=== PATIENT | female | born 1945 | race Asian ===

== ENCOUNTER 2018-04-25 14:22 | Emergency (ER) | payer OTHER, MEDICAID ==
[~2018-04-25] VITALS: Ht 139.7 cm; Wt 73.5 kg
[2018-04-25 14:37] VITALS: Ht 139.7 cm; Wt 73.5 kg
[2018-04-25 18:39] VITALS: BP 140/76
== END 2018-04-25 18:39 | disposition home or self-care (01) ==
LOC: ED 14:22
DX: M43.6 Torticollis (principal); I50.9 Heart failure, unspecified; I11.0 Hypertensive heart disease with heart failure; E11.9 Type 2 diabetes mellitus without complications
CPT/HCPCS: Q0092

== ENCOUNTER 2019-03-07 15:01 | Inpatient (IN) | payer OTHER, MEDICAID ==
[~2019-03-07] VITALS: Ht 152.4 cm; Wt 74.4 kg
--- NOTE | 2019-03-07 15:23 | NUR ---
PT BIB [facility] FOR SOB X 1 WEEK PROGRESSIVELY GETTING WORSE. PT AAOX4 NO RESP DISTRESS DIMINISHED/CRACKLES LUNGS SOUNDS PT REPORTS CLEAR/WHITE PHLEGM PT RECEIVED ONE BREATHING TX MANAGEMENT RECRUITER TO ED. PTS FAMILY AT BEDSIDE AWAITING MD EVAL AND ORDERS. WILL MONITOR
--- NOTE | 2019-03-07 16:02 | NUR ---
LAB AT BEDSIDE. RESP AT BEDSIDE FOR ABG.
[2019-03-07] MEDS ORDERED: ALBUTEROL1.25 MG/3 NEB (16:03)
[2019-03-07] MEDS ORDERED: CARVEDILOL25 M1 PO (16:04)
[2019-03-07] MEDS ORDERED: FERROUS SULFAT325 M2 PO (16:04)
[2019-03-07] MEDS ORDERED: POTASSIUM CHLO10 MEQ PO (16:04)
[2019-03-07] MEDS ORDERED: LIPI10 PO (16:04)
[2019-03-07] MEDS ORDERED: DILTIAZEM HCL120 M2 PO (16:05)
[2019-03-07] MEDS ORDERED: JANUVIA100 M1 PO (16:05)
[2019-03-07] MEDS ORDERED: ELIQUIS5 MG PO (16:05)
[2019-03-07] MEDS ORDERED: GLIPIZIDE5 M2 PO (16:05)
[2019-03-07] MEDS ORDERED: FUROSEMIDE40 MG PO (16:06)
[2019-03-07] MEDS ORDERED: LOSARTAN POTASS25 M1 PO (16:06)
[2019-03-07] MEDS ORDERED: PANTOPRAZOLE SO40 M1 PO (16:06)
[2019-03-07 16:22] LABS: BASOPHIL % 0.4 % (0-2); PLATELET COUNT 155 x10^3mcL (130-400)
[2019-03-07 16:24] LABS: RED CELL DISTRIBUTION WIDTH 16.9 % (11.5-14.5)
--- NOTE | 2019-03-07 16:34 | NUR ---
PT PLACED ON BEDPAN AND UNABLE TO GIVE URINE SAMPLE AT THIS MD NILA MADE AWARE.
[2019-03-07 16:37] LABS: CALCIUM 7.6 mg/dL (8.5-10.1); CARBON DIOXIDE 28.2 mmol/L (21-32); CHLORIDE SERUM 103 mmol/L (98-107); CREATININE SERUM 2.4 mg/dL (0.6-1.0); GLUCOSE SERUM 154 mg/dL (74-106); SODIUM SERUM 140 mmol/L (136-145)
--- NOTE | 2019-03-07 16:38 | NUR ---
REPORT RECEIVED FROM COLE GRIFFITHS TO ASSUME CARE OF PT.
[2019-03-07 16:48] LABS: ALKALINE PHOSPHATASE 121 U/L (46-116); ALT/SGPT 12 U/L (14-59); AST/SGOT 15 U/L (15-37); BILIRUBIN TOTAL 0.46 mg/dL (0.20-1.00); C REACTIVE PROTEIN 1.7 mg/dL (<=0.9); TOTAL PROTEIN, SERUM 7.7 g/dL (6.4-8.2)
[2019-03-07 16:51] LABS: CK-MB 0.8 ng/mL (0-3.6); FREE T4 1.1 ng/dL (0.76-1.46); FREE THYROXINE INDEX 2.9 ug/dL (1.4-4.5); T4(THYROXINE) 8.2 ug/dL (4.7-13.3)
[2019-03-07 16:54] LABS: ALBUMIN 2.6 g/dL (3.4-5.0)
[2019-03-07 17:00] LABS: ERYTHROCYTE SED RATE 97 mm/hr (0-30)
--- NOTE | 2019-03-07 17:26 | NUR ---
MEDICATED PER EMAR, PT UNDERSTOOD MEDICATION ADMIN.
[2019-03-07 17:37] LABS: UA SPECIFIC GRAVITY 1.025 (1.005-1.035); microscopic required? YES; urine erythrocyte NEGATIVE (NEGATIVE)
[2019-03-07 18:09] LABS: T3 TOTAL 0.75 ng/mL
--- NOTE | 2019-03-07 18:45 | NUR ---
REPORT GIVEN TO ELIA GRIFFITHS TO ASSUME CARE OF PT.
--- NOTE | 2019-03-07 19:15 | NUR ---
RECEIVED PT FROM ED VIA ROBERT, CAME IN DUE TO SOB AND COUGH. AAXO4. DENIES HEADACHE. C/O DIZZINESS. ABLE TO FOLLOW COMMANDS. NO SOB NOTED, CRACKLES NOTED ON AUSCULTATION, O2 SAT=94% ON 2LPM/NC. STATED THAT SHE HAS PRODUCTIVE COUGH, ABLE TO EXPECTORATE LIGHT YELLOW SPUTUM. DENIES CHEST PAIN/PRESSURE, AFIB ON THE MONITOR. DENIES ABDOMINAL PAIN. C/O NAUSEA AND VOMITING, MEDICATED W/ ZOFRAN 4 MG IVP ORDERED. VOIDS. GENERALIZED WEAKNESS. IV SITE PATENT AND INTACT. SIDE RAILS UPX2. CALL LIGHT ON REACH. HOB ELEVATED AT 30 DEG. ENDORSED TO PRIMARY NURSE ZINA FOR CONTINUITY OF CARE
[2019-03-07 19:30] VITALS: BP 121/53
[2019-03-07 19:38] VITALS: Ht 152.4 cm; Wt 74.4 kg
--- NOTE | 2019-03-07 20:30 | NUR ---
PT RECEIVED FROM RESOURCE NURSE, NARENDRA GRIFFITHS. PT IS A/O X4. TELE #7 SHOWING AFIB. PULSES ARE PALPABLE. NO EDEMA PRESENT. BREATHING IS EVEN AND SLIGHTLY LABORED ON 2L NC. CRACKLES CELY. ABD IS SOFT AND NONDISTENDED. BS ACTIVE X4Q. PT HAVE EPISODES OF URINARY INCONTINENCE. GENERALIZED WEAKNESS. CANE/WALKER BASELINE. SKIN INTACT. DENIES PAIN AT THIS TIME. SALINE LOCK TO RAC. SON AT BEDSIDE. BED IN LOWEST POSITION. CALL LIGHT WITHIN REACH. WILL CONTINUE TO MONITOR.
--- NOTE | 2019-03-07 21:25 | NUR ---
BEGAN TO C/O 10/10 PAIN ON BACK. OFFERED PT NORCO, BUT PT STATED IT WAS TO STRONG. MEDICATED WITH PRN TYLENOL PER MAR ORDER. WILL REASSESS EFFECTIVENESS. CALL LIGHT WITHIN REACH.
[2019-03-07 21:31] LABS: CHOLESTEROL/HDL RATIO 4.2
--- NOTE | 2019-03-07 22:00 | NUR ---
PTS SON LEFT, BED ALARM ON. WILL CONTINUE TO MONITOR.
[2019-03-07 22:23] LABS: AMPHETAMINE QUAL UR NONE DETECTED (See below)
--- NOTE | 2019-03-08 00:47 | NUR ---
PT IS RESTING IN BED COMFORTABLY WITH EYES CLOSED, BUT EASILY AROUSABLE WHEN SPOKEN TO. BREATHING IS EVEN AND UNLABORED ON 2LNC. NO RESP DISTRESS NOTED. BED IN LOWEST POSITION. CALL LIGHT WITHIN REACH. WILL CONTINUE TO MONITOR.
--- NOTE | 2019-03-08 02:33 | NUR ---
PT IS AWAKE AND REPOSITIONING SELF. BREATHING IS EVEN AND UNLABORED ON 2L NC. DENIES SOB. DENIES PAIN AT THIS TIME. ENCOURAGED PT TO USE CALL LIGHT IF IN NEED OF ANY ASSISTANCE OR HAVING ANY DISCOMFORT. BED IN LOWEST POSITION. WILL CONTINNUE TO MONITOR.
--- NOTE | 2019-03-08 03:58 | NUR ---
PT INCONTINENT OF URINE. PT CLEANED AND REPOSITION, HYDRAGUARD PLACED. RAC IV INTACT. PT DENIES HAVING ANY PAIN AT THIS TIME. NO ACUTE DISTRESS NOTED. BED ALARM ON. CALL LIGHT WITHIN REACH. WILL CONT TO MONITOR.
--- NOTE | 2019-03-08 05:29 | NUR ---
PT SLEPT IN INTERVALS THROUGHOUT THE NIGHT. PT COMPLIED WITH NURSING CARE THROUGHOUT SHIFT WITH NO ACUTE EVENTS OVERNIGHT. COMFORT AND SAFETY MEASURES MAINTAINED. ALL NEEDS ASSESSED AND ATTENDED TO. WILL CONTINUE TO MONITOR AND ENDORSE CARE TO DAY SHIFT NURSE.
--- NOTE | 2019-03-08 05:44 | NUR ---
SPOKE WITH DR. MALDONADO ABOUT PTS HX OF DM AND HGBA1C OF 8.5. AWAITING ORDERS AT THIS TIME.
[2019-03-08 05:55] VITALS: BP 104/61
--- NOTE | 2019-03-08 07:15 | NUR ---
RECEIVED PATIENT AWAKE/ALERT IN BED NO COMPLAIN, NO C/O PAIN. NO ACUTE DISTRESS NOTED. SLOW TO TALK BUT ABLE TO VERBALIZE NEEDS. ASKING RN TO CALL HER SON. DIAL THE SON NUMBER FOR PATIENT. TELE #7 AFIB HR 109 NOTED. IV TO RAC INTACT AND SL NOTED. CALL LIGHT WITHIN REACH.
--- NOTE | 2019-03-08 07:36 | NUR ---
ENDORSED CARE TO DAY SHIFT NURSE, HARRIET GRIFFITHS.
[2019-03-08 08:54] LABS: PLATELET COUNT 142 x10^3mcL (130-400)
[2019-03-08 09:17] LABS: CARBON DIOXIDE 25.3 mmol/L (21-32); CHLORIDE SERUM 101 mmol/L (98-107); CREATININE SERUM 2.3 mg/dL (0.6-1.0); GLUCOSE SERUM 323 mg/dL (74-106); MAGNESIUM 1.9 mg/dL (1.8-2.4); PHOSPHOROUS 4.1 mg/dL (2.5-4.9); POTASSIUM SERUM 3.5 mmol/L (3.5-5.1); SODIUM SERUM 138 mmol/L (136-145)
[2019-03-08 09:20] LABS: RED CELL DISTRIBUTION WIDTH 16.8 % (11.5-14.5)
[2019-03-08 09:28] VITALS: BP 135/55
[2019-03-08 09:32] VITALS: BP 142/65
--- NOTE | 2019-03-08 09:52 | NUR ---
PATIENT UP TO BATHROOM WITH SON ASSIST, NEEDS MET. ALL PO MEDS WAS GIVEN BY STUDENT AND PROFESSOR AGAPITO. CALL LIGHT WITHIN REACH.
--- NOTE | 2019-03-08 11:42 | NUR ---
PATIENT SAT UP IN BED C/O BACK PAIN 6/10 TYLENOL 2 TABS PO ADMINISTERED, BS 264 GAVE 9 UNITS OF REGULAR INSULIN SQ TO RT ABDOMEN, NEEDS MET. SON SHAY REMAIN AT BEDSIDE.
[2019-03-08 11:51] LABS: BAND NEUTROPHIL 50 % (0-10); BASOPHIL 0 % (0-2); MONOCYTE 2 % (0-7); SEGMENTED NEUTROPHILS 43 % (37-75); ovalocyte/elliptocyte 1+; rbc morphology (normal/abnorm) ABNORMAL (NORMAL)
[2019-03-08 11:53] LABS: PLATELET MORPHOLOGY PLATELETS DECREASED
--- NOTE | 2019-03-08 11:54 | NUR ---
SPUTUM OBTAIN AND SEND TO LAB ORDERED.
[2019-03-08 12:17] VITALS: BP 113/65
--- NOTE | 2019-03-08 13:07 | NUR ---
PATIENT SAT UP IN BED ATE ABOUT 40% OF THE MEAL, FAMILY MEMBERS REMAIN AT BEDSIDE. NO C/O PAIN. CALL LIGHT WITHIN REACH.
--- NOTE | 2019-03-08 14:32 | NUR ---
ECHOCARDIOGRAM PENDING -HAD ECHO/ANGIOGRAM STEPHANIE KIRKLAND-08/2018
[2019-03-08 16:44] VITALS: BP 99/51
--- NOTE | 2019-03-08 18:40 | NUR ---
PATIENT RESTING IN BED WATCHING TV, NO COMPLAIN. NEEDS MET. CALL LIGHT WITHIN REACH.
[2019-03-08 20:14] VITALS: BP 110/65
--- NOTE | 2019-03-08 20:18 | NUR ---
PATIENT RECEIVED IN BED AWAKE,ALERT AND ORIENTED X4, SPEECH CLEAR,CLAIMED SHE STILL EXPERIENCING DIZZINESS WHENEVER SHE STAND FROM LYING POSITION, ADVICED TO CALL NURSE IF NEEDS ARISES. BREATHING EVEN AND UNLABORED BC FINE CRACKLES BASES AND EXP WHEEZING UPPER LOBES, WITH OCC PRODUCTIVE COUGH YELLOW PHLEGM CLEARED BY COUGHING, FOUND ON ROOM AIR SAT 95%, PATIENT STATED TOLERATING IT, O2 MAKES HER NOSE AND MOUTH DRY, ADVICED TO GRAB O2 IF NEEDED. DENIED CHEST PAINS, HR=85BPM, ATRIAL FIB CONTROLLED RATE, TELE#7. HEPLOCK TO RT AC PATENT AND INTACT TAPE SECURED, CAP LOCK APPLIED. PATIENT AND SON INFORMED ABOUT POC THIS SHIFT. SAFETY/FALL PRECAUTIONS MAINTAINED. WILL CONTINUE TO MONITOR.
--- NOTE | 2019-03-08 21:20 | NUR ---
SCHEDULED MED ADMINISTERED THIS TIME, PATIENT INFORMED ABOUT EACH MEDS ACTIONS AND PURPOSE PRIOR. PATIENT ABLE TO TAKE PILLS WITHOUT DIFF.
--- NOTE | 2019-03-08 22:33 | NUR ---
AT 2211 PATIENT CHECKED , SLEEPING EASILY AWAKEN VERBALLY, STATED VICKY DIEHL PAIN IS BETTER AT 2/10, COMFORTABLE. WILL CONTINUE TO MONITOR.
[2019-03-09 05:13] VITALS: BP 109/53
--- NOTE | 2019-03-09 06:21 | NUR ---
PATIENT SLEPT GOOD AND RESTED WELL DURING THE SHIFT,TOLERATED BEING ON ROOM AIR SATURATING BETWEEN 95-98%. WAS ASSISTED OOB TO THE BATHROONM FOR HER NECESSITIES, GAIT STEADY/SLOW, VOIDED WITHOUT DIFF. HEPLOCK INTACT CAP LOCK. SAFETY PRECAUTIONS MAINTAINED. ATRIAL FIB CONTROLLED RATE ON THE MONITOR. WILL ENDORSE CONTINUITY OF CARE TO INCOMING NURSE.
--- NOTE | 2019-03-09 07:19 | NUR ---
BEDSIDE HANDS OFF AND INTRODUCTION PERFORMED WITH INCOMING NURSE ERLIN/DAVID.
--- NOTE | 2019-03-09 07:25 | NUR ---
RECEIVED REPORT FROM BUTT MAKER NURSE PT LYING IN BED ASLEEP AND AROUSABLE. EXPIRATORY WHEEZES HEARD BILAT,PT ON RA AT 92-99%, PRODUCTIVE COUGH, SPUTUM CLEARED WITH COUGH. PULSES STRONG BILAT RADIAL AND PEDAL, DENIES CHEST PAIN AT THIS TIME. IV ON RAC SALINE LOCK PATENT , INTACT NO REDNESS OR SWELLING NOTED. INSTRUCTED PT TO USE CALL LIGHT FOR ANY NEEDS. BED IN LOW POSITION CALL LIGHT WITHIN REACH. WILL CONTINUE TO MONITOR.
[2019-03-09 08:01] LABS: CALCIUM 8.2 mg/dL (8.5-10.1); CARBON DIOXIDE 27.8 mmol/L (21-32); CHLORIDE SERUM 103 mmol/L (98-107); CREATININE SERUM 2.2 mg/dL (0.6-1.0); GLUCOSE SERUM 208 mg/dL (74-106); PHOSPHOROUS 3.5 mg/dL (2.5-4.9); SODIUM SERUM 138 mmol/L (136-145)
[2019-03-09 08:16] LABS: PLATELET COUNT 132 x10^3mcL (130-400)
[2019-03-09 08:24] LABS: RED CELL DISTRIBUTION WIDTH 16.7 % (11.5-14.5)
[2019-03-09 08:47] VITALS: BP 101/56
--- NOTE | 2019-03-09 10:00 | NUR ---
ADMINISTERED FLU SHOT AND ALL PRESCIRBED MEDS PER JUL PT TOLERATED WELL. NO ADVERSE AFFECTS NOTED AT THIS TIME. WILL CONTINUE TO MONITOR.
[2019-03-09 10:42] LABS: BASOPHIL 0 % (0-2); MONOCYTE 3 % (0-7)
[2019-03-09 10:43] LABS: BAND NEUTROPHIL 42 % (0-10)
[2019-03-09 10:44] LABS: SEGMENTED NEUTROPHILS 49 % (37-75)
[2019-03-09 10:46] LABS: PLATELET MORPHOLOGY PLATELETS NORMAL; rbc morphology (normal/abnorm) ABNORMAL (NORMAL)
[2019-03-09 10:47] LABS: ovalocyte/elliptocyte 1+
--- NOTE | 2019-03-09 11:30 | NUR ---
BLOOD GLUCOSE 319 ADMINISTERED 12 U REGULAR INSULIN PER SLIDING SCALE. PT TOLERATED WELL. WILL CONTINUE TO MONITOR.
[2019-03-09 12:18] VITALS: BP 111/44
--- NOTE | 2019-03-09 12:45 | NUR ---
PT SITTING UP IN BED EATING LUNCH. TOLERATED DIET WELL. IN NO APPARENT DISTRESS. WILL CONTINUE TO MONITOR.
--- NOTE | 2019-03-09 14:23 | NUR ---
PT LYING IN BED ZOSYN INFUSING. PT IN NO APPARENT DISTRESS. WILL CONTINUE TO MONITOR.
--- NOTE | 2019-03-09 16:45 | NUR ---
BLODD GLUCOSE 362 15 U REGULAR INSULIN GIVEN PER SLIDING SCALE. PT TOLERATED WELL. NO ADVERSE AFFECTS NOTED. WILL CONTINUE TO MONITOR.
[2019-03-09 17:44] VITALS: BP 112/63
--- NOTE | 2019-03-09 19:04 | NUR ---
PT LYING IN BED IN NO APPARENT DISTRESS. IV INFUSING ON RAC PATENT NO REDNESS OR EDEMA NOTED. ALL QUESTIONS AND CONCERNS ADDRESSED AT THIS TIME. ENDORSING CARE TO NIGHT NURSE.
--- NOTE | 2019-03-09 19:20 | NUR ---
RECIEVED PT RESTING IN BED WITH NO ACUTE DISTRESS NOTED AT THIS TIME, ASSESMENT PERFORMED AT THIS TIME, PT IS A/OX4 WITH NO COMPLAINTS OF PLATT OR DIZZINESS. PT DENIES PAIN OR SOB AT THIS TIME, PT IS ON O2 AT 2L VIA NC, IV TO THE RAC SALINE LOCKED, TELE 7 AFIB, SAFETY PRECAUTIONS IN PLACE, WILL CONTINUE TO MONITOR
[2019-03-09 21:08] VITALS: BP 96/69
--- NOTE | 2019-03-09 21:41 | NUR ---
PT IV WENT BAD, STARTED NEW IV IN THE RIGHT HAND 22 G
--- NOTE | 2019-03-10 00:05 | NUR ---
PT AMBULATED TO RESTROOM WITH STEADY GAIT AND HAD ONE VOID, RETURNED PT TO BED, SAFETY PRECAUTIONS IN PLACE, WILL COTОЛЕГUE TO MONITOR
--- NOTE | 2019-03-10 05:05 | NUR ---
PT RESTED COMFORTABLY THROUGH NIGHT, PT HAD MILD SOB EARLIER IN SHIFT BUT IT RESLOVED WITH O2 AT 2L VIA NC, PT AMBULATED TO RESTROOM WITH STEADY GAIT, PT DENIED PAIN THROUGH NIGHT, ALL PT NEEDS ATTENDED TO WILL CONTINUE TO MONITOR AND ENDORSE CARE
[2019-03-10 06:44] LABS: CARBON DIOXIDE 28.1 mmol/L (21-32); CHLORIDE SERUM 101 mmol/L (98-107); CREATININE SERUM 1.9 mg/dL (0.6-1.0); GLUCOSE SERUM 255 mg/dL (74-106); MAGNESIUM 2.1 mg/dL (1.8-2.4); PHOSPHOROUS 3.5 mg/dL (2.5-4.9); SODIUM SERUM 137 mmol/L (136-145)
[2019-03-10 06:50] VITALS: BP 129/77
--- NOTE | 2019-03-10 07:05 | NUR ---
RECEIVED REPORT FROM PANCHO GRIFFITHSSILK WORKERBOX TENDER. PT ASLEEP BUT ARROUSABLE A&O X4, IN NO APPARENT DISTRESS. ON NC 2L EXPIRATORY LUNG SOUNDS NOTED. BREATHING UNLABORED. ASSESSED AND DOCUMENTED. ALL QUESTIONS AND CONCERNS ADDRESSED AT THIS TIME. BED IN LOW POSITION CALL LIGHT WITHIN REACH. WILL CONTINUE TO MONITOR.
[2019-03-10 07:51] LABS: PLATELET COUNT 146 x10^3mcL (130-400)
[2019-03-10 07:52] LABS: RED CELL DISTRIBUTION WIDTH 16.7 % (11.5-14.5)
[2019-03-10 08:05] VITALS: BP 127/75
--- NOTE | 2019-03-10 08:36 | NUR ---
PT LYING IN BED VERONICA OTOOLE AND RT AT BEDSIDE. ADMINISTERED SCHEDULED MED PER JUL. NO ADVERSE REACTIONS NOTED. PT IN NO APPARENT DISTRESS. ALL QUESTIONS AND CONCERNS NOTED. BED IN LOW POSITION. CALL LIGHT WITHIN REACH. PT IV IS SALINE LOCKED PATENT AND INTACT NO SWELLING OR REDNESS NOTED PT DENIES ANY PAIN. WILL CONTINUE TO MONITOR.
[2019-03-10 09:32] LABS: BASOPHIL 0 % (0-2); MONOCYTE 3 % (0-7); SEGMENTED NEUTROPHILS 44 % (37-75)
[2019-03-10 09:34] LABS: ovalocyte/elliptocyte 1+; rbc morphology (normal/abnorm) ABNORMAL (NORMAL)
[2019-03-10 09:35] LABS: PLATELET MORPHOLOGY PLATELETS NORMAL
--- NOTE | 2019-03-10 10:47 | NUR ---
NOTIFIED PT AND OF 1.5L/DAY FLUID RESTRICTION PER DR ORDERS. PT AND VERBALIZED UNDERSTANDING. TOOK AWAY ALL WATER AND ASKED TO TAKE WATER BOTTLES HOME. AGREED.
--- NOTE | 2019-03-10 11:42 | NUR ---
ADMINISTERED LANTUS PER MAR BLOOD SUGAR WAS 342 ADMINISTERED REGULAR INSULIN PER SLIDING SCALE. PT TOLERATED WELL. ALL NEEDS MET AT THIS TIME. CALL LIGHT WITHIN REACH. WILL CONTINUE TO MONITOR.
[2019-03-10 12:33] VITALS: BP 122/63
--- NOTE | 2019-03-10 12:51 | NUR ---
PT SERVED LUNCH TOLERATED WELL. ALL QUESTIONS AND CONCERNS ADDRESSED AT THIS TIME. WILL CONTINUE TO MONITOR.
--- NOTE | 2019-03-10 14:20 | NUR ---
PT LYING IN BED ASLEEP IN NO APPARENT DISTRESS. INFUSED ZOSYN PER JUL. NO ADVERSE AFFECTS NOTED. WILL CONTINUE TO MONITOR.
[2019-03-10 14:38] VITALS: BP 122/63
--- NOTE | 2019-03-10 16:25 | NUR ---
PT LYING IN BED. APPEARS TO BE IN NO APPARENT DISTRESS. BLOOD SUGAR [id number] ADMINISTERED INSULIN PER SLIDING SCALE. PT TOLERATED WELL. WILL CONTINUE TO MONITOR.
[2019-03-10 16:33] VITALS: BP 135/73
--- NOTE | 2019-03-10 18:49 | NUR ---
PY LYING IN BED SLEEPING IN NO APARENT DISTRESS. IV SALINE LOCK ON RIGHT HAND PATENT AND INTACT NO EDEMA OR REDNESS NOTED. BREATHING UNLABORED CHEST RISE EQUAL ON 2 L NC. NO SOB NOTED. BED IN LOW POSITION CALL LIGHT WITHIN REACH. WILL ENDORSE CARE TO MERCHANT MARINER NURSE.
--- NOTE | 2019-03-10 19:30 | NUR ---
RECIEVED PT RESTING IN BED, SUPPORTIVE FAMILY AT BEDSIDE. PT AOX4, DENIES PLATT/DIZZINESS. [place] BILAT. ABLE TO MAKE NEEDS KNOWN. TELE # 7, A FIB, HR 78-93, DENIES CP. PT ON ELIQUIS. PULSES PALPABLE BILAT, DENIES NUMBNESS/TINLGING IN FEET. RESP EVEN AND UNLABORED, PT ON AND OFF WITH OXYGEN, 2LNC. DENIES SOB. MINIMAL EXP WHEEZE NOTED. ON SOLUMEDROL. ABD SOFT, ROUND, BM IN DAYSHIFT. DENIES ABD PAIN. PT REPORTS HX OF STRESS INCONTINENCE. ABLE TO AMBULATE TO RESTROOM BRP. GENERALIZED WEAKNESS, WALKER AT BEDSIDE. SKIN INTACT. DENIES PAIN. RH SALINE LOCKED, NO REDNESS, SWELLING OR PAIN NOTED. PT RECEIVING LEVAQUIN AND ZOSYN. ALL COMFORT AND SAFETY MEASURES PROVIDED FOR, CALL LIGHT WITHIN REACH, BED IN LOWEST POSITION, WILL CONTINUE TO MONITOR.
[2019-03-10 21:04] VITALS: BP 117/61
--- NOTE | 2019-03-11 05:00 | NUR ---
PT RESTED IN INTERVALS DURING SHIFT, NO ACUTE CHANGES OCCURRING OVERNIGHT. PT REMAINS ON 2LNC, DENIES SOB, RESP EVEN AND UNLABORED. PT AMBULATED TO RESTROOM X2, WITH MINIMAL ASSIST. PT URINATED X2, BM X1. PT INGESTED 500ML OF WATER. PT EDUCATED ON IMPORTANCE OF LIMITING FLUID INTAKE, VERBALIZES UNDERSTANDING. BLOOD SUGARS REMAIN ELEVATED, 342 (12U REG), 229 (6 U REG). PT SCHEDULED TO BEGIN LANTUS THIS EVENING. IV SITE REMAINS PATENT, TP RT HAND, SALINE LOCKED. TOELRATING ZOSYN WELL. ALL COMFORT AND SAFETY MEASURES PROVIDED FOR, CALL LIGHT WITHIN REACH, BED IN LOWEST POSITION, WILL CONTINUE TO MONITOR.
--- NOTE | 2019-03-11 05:05 | NUR ---
PT RESTED IN INTERVALS DURING SHIFT, MOMENTS OF AGITATION AND REQUESTING CALMING MEDICATION. PT MEDICATED WITH ATIVAN X3 AND MORPHINE X1. PT ALSO MEDICATED WITH SCHEDULED LIBRIUM WITH GOOD RESULTS. PT REPORTS WAKING UP FREQUENTLY WITH BAD DREAMS. PT CALM AND COOPERATIVE WITH CARE AT THIS TIME. IV SITE REMAINS PATENT, NO REDNESS, SWELLING OR PAIN NOTED. ALL COMFORT AND SAFETY MEASURES PROVIDED FOR, CALL LIGHT WITHIN REACH, BED IN LOWEST POSITION, WILL CONTINUE TO MONITOR.
[2019-03-11 05:35] VITALS: BP 106/70
[2019-03-11 06:55] LABS: CALCIUM 7.9 mg/dL (8.5-10.1); CARBON DIOXIDE 27.1 mmol/L (21-32); CHLORIDE SERUM 103 mmol/L (98-107); CREATININE SERUM 1.8 mg/dL (0.6-1.0); POTASSIUM SERUM 3.9 mmol/L (3.5-5.1); SODIUM SERUM 140 mmol/L (136-145)
[2019-03-11 07:02] LABS: PLATELET COUNT 160 x10^3mcL (130-400)
[2019-03-11 07:13] LABS: GLUCOSE SERUM 247 mg/dL (74-106)
--- NOTE | 2019-03-11 07:20 | NUR ---
RECEIVED REPORT FROM DOOR MAKER NURSE PT ASLEEP BUT AROUSABLE. A&O X4 IN NO APPARENT DISTRESS AT THIS TIME. PT DENIES ANY PAIN AT THIS TIME. CHEST RISE EQUAL AND UNLABORED. IV PATENT AND INTACT NO EDEMA OR REDNESS NOTED. ALL NEEDS ADDRESSED AT TRHIS TIME. CALL LIGHT WITHIN REACH. WILL CONTINUE TO MONITOR.
--- NOTE | 2019-03-11 09:05 | NUR ---
PT LYING IN BED FINISHED BREAKFAST. ADMINISTERED SCHEDULED MEDS PER JUL. PT TOLERATED NO ADVERSE EFFECTS NOTED. ALL NEEDS ADDRESSED. CALL LIGHT WITHIN REACH WILL CONTINUE TO MONITOR.
[2019-03-11 09:14] VITALS: BP 137/71
--- NOTE | 2019-03-11 11:36 | NUR ---
PT SLEEPING IN BED. BLOOD GLUCOSE 361 ADMINISTERED 15U REGULAR INSULIN PT TOLERATED WELL. NO ADVERSE EFFECTS NOTED . WILL CONTINUE TO MONITOR.
[2019-03-11 12:04] VITALS: BP 140/60
[2019-03-11 12:08] LABS: BAND NEUTROPHIL 52 % (0-10); BASOPHIL 0 % (0-2); MONOCYTE 4 % (0-7); PLATELET MORPHOLOGY PLATELETS NORMAL; SEGMENTED NEUTROPHILS 39 % (37-75); ovalocyte/elliptocyte 1+; rbc morphology (normal/abnorm) ABNORMAL (NORMAL)
[2019-03-11 12:21] LABS: BAND NEUTROPHIL 50 % (0-10)
--- NOTE | 2019-03-11 13:00 | NUR ---
PT SITTING UP IN BED EATING LUNCH. TOLERATING DIET WELL. ALL NEEDS ATTENDED TO WILL CONTINUE TO MONITOR.
--- NOTE | 2019-03-11 14:36 | NUR ---
PT C/O CHEST PAIN 03/08 RADIATING TO THE BACK. SAT PT UP HIGH FOWLERS APPLIED 2LNC O2 VITALS: BP 149/82 MAP 95 SAT 02 97% HR [address] GALARZA NOTIF[address] . OFFERED NORCT PT REFUSED.
--- NOTE | 2019-03-11 14:41 | NUR ---
SPOKE WITH DR STRONG RE: PATIENT C/O CHEST PAIN 10/10, VS STABLE. DR STRONG WILL ORDER STAT EKG AND MEDICATION FOR CHEST PAIN. ATTENDING NURSE MAIDA AT PATIENT'S BEDSIDE.
--- NOTE | 2019-03-11 14:48 | NUR ---
PT RATING PAIN 0/10. PT STATES "OXYGEN HELPED"
--- NOTE | 2019-03-11 14:50 | NUR ---
PT SITTING UP IN BED ON 2L NC, DENIES CHEST PAIN OR PRESSURE AT THIS TIME. FAMILY AT BEDSIDE. CALL LIGHT WITHIN REACH. ALL QUESTIONS AND CONCERNS ADDRESSED AT THIS TIME.
[2019-03-11 14:51] VITALS: BP 149/82
--- NOTE | 2019-03-11 15:06 | NUR ---
SHOWED EKG TO DR. STRONG EKG SHOWED PT IN A FIB. PER DR STRONG NO NEW ORDERS TO BE DONE AT THIS TIME. WILL CONTINUE TO MONITOR.
[2019-03-11 17:03] VITALS: BP 140/66
--- NOTE | 2019-03-11 17:03 | NUR ---
ADMINISTERED MEDICATION PER MAR PT TOLERATED WELL IN NO APPARENT DISTRESS. NO ADVERSE AFFECTS NOTED WILL CONTINUE TO MONITOR.
[2019-03-11] MEDS ORDERED: METFORMIN HYDR500 M1 PO (17:07)
--- NOTE | 2019-03-11 17:17 | NUR ---
SPOKE TO DR STRONG AT THIS TIME REGARDING PATIENT BLOOD SUGAR 425 AT THIS TIME. PATIENT MEDICATED WITH 18 UNITS OF INSULIN. REPORTED TO DR STRONG PATIENT HAS TWO HOME MEDICATIONS FOR BLOOD SUGAR, GLIPIZIDE 5MG BID AND JANUVIA 50MG PO DAILY, THAT HAVE NOT BEEN CONTINUED DURING HOSPITAL STAY WELL PATIENT WAS PUT ON LANTUS DURING HOSPITAL STAY 5 UNITS GIVEN THIS AM AND 10 UNITS FOR PM SHIFT. PER DR STRONG, HE WILL RELAY MESSAGE TO DR PRICE. AWAITING ORDERS AT THIS TIME. WILL PROCEED ORDERED. WILL CONTINUE TO MONITOR
--- NOTE | 2019-03-11 18:29 | NUR ---
PT LYING IN BED WATCHING TV IN NO APPARENT DISTRESS. ALL NEEDS ATTENDED TO IV INTACT NO REDNESS OR EDEMA . PT DENIES SOB OR CHEST PAIN. PT ON 2LNC TOLERATING WELL. ALL NEEDS ATTENDED TO BED IN LOW POSITION. CALL LIGHT WITHIN REACH WILL ENDORSE CARE TO DIRECTOR OF STUDENT FINANCIAL AID NURSE.
--- NOTE | 2019-03-11 19:25 | NUR ---
RECEIVED PT RESTING IN BED, PT APPEARS DROWSY, YET EASY TO AROUSE. PT CIW, UNABLE TO KEEP CONTENTS IN STOMACH DOWN. REFUSING MEDICATION FOR N/V. TELE # 4, NSR 72, DENIES CP. PULSES PALPABLE BILAT, DENIES NUMBNESS/TINGLING IN FEET. SCDS ON. RESP EVEN AND UNLABORED ON RA, DENIES SOB. ABD SOFT, HYPERACTIVE. PT ON FULL LIQ DIET, INTOELRATE AT THIS TIME. PT WITH GONZALEZ CATH DRAINING YELLOW URINE TO GRAVITY, DENIES DYSRUIA. GENERALIZED WEAKNESS, ON BED REST FOR SAFETY D/T PT VERY WEAK. BSC AVAILABLE. SKIN INTACT. IV SITE TO THE RFA PATENT, D5W @ 150ML/HR. NO REDNESS, SWELLING OR PAIN NOTED. PT RECEIVING ZOSYN AND VANCO. ALL COMFORT AND SAFETY MEASURES PROVIDED FOR, CALL LIGHT WITHIN REACH, BED IN LOWEST POSITION, WILL CONTINUE TO MONITOR.
--- NOTE | 2019-03-11 19:30 | NUR ---
RECIEVED PT RESTING IN BED, PT AOX4, DENIES PLATT/DIZZINESS. [place] BILAT. ABLE TO MAKE NEEDS KNOWN. TELE # 7, A FIB, HR CONTROLLED IN THE 80'S, DENIES CP. PT ON ELIQUIS. PULSES PALPABLE BILAT, DENIES NUMBNESS/TINLGING IN FEET. RESP EVEN AND UNLABORED, PT ON OXYGEN, 2LNC. DENIES SOB. CTA UPPER LOBES. WILL ATTEMPT TO WEAN OFF O2. PT NOW ON PREDNISONE. ABD SOFT, ROUND, BM IN DAYSHIFT. DENIES ABD PAIN. PT REPORTS HX OF STRESS INCONTINENCE. ABLE TO AMBULATE TO RESTROOM BRP. GENERALIZED WEAKNESS, WALKER AT BEDSIDE. SKIN INTACT. DENIES PAIN. RH SALINE LOCKED, NO REDNESS, SWELLING OR PAIN NOTED. PT RECEIVING LEVAQUIN AND ZOSYN. ALL COMFORT AND SAFETY MEASURES PROVIDED FOR, CALL LIGHT WITHIN REACH, BED IN LOWEST POSITION, WILL CONTINUE TO MONITOR.
[2019-03-11 20:36] VITALS: BP 129/63
--- NOTE | 2019-03-11 22:15 | NUR ---
PT USED CALL LIGHT TO BE DETACHED FROM IV SO SHE COULD AMBUALTE TO RESTROOM. PT GAIT SLOW/STEADY. ABLE TO MANAGE FWW WITHOUT ASSISTANCE. PT EDUCATED ON THE SAFETY CALL LIGHT IN RESTROOM IN CASE OF EMERGENCY (SOB/CP) PT VERBALIZES UNDERSTANDING. WILL CONTINUE TO MONITOR.
--- NOTE | 2019-03-12 05:13 | NUR ---
PT RESTED IN INTERVALS DURING SHIFT, NO ACUTE CHANGES OCCURRING OVERNIGHT, PT TITRATED DOWN TO 1LNC, O2 SAT= 95% ON 1LNC, NO S/S OF SOB, NO CP NOTED. PT DENIES PLATT/DIZZINESS NOTED. WILL ATTEMPT TO TITRATE TO ROOM AIR IF PT TOLERATES. PT UTILIZES FWW WILL WITHOUT DIFFICULTY. PT ABLE TO PARK FWW AGAINST THE WALL AND WALK HERSELF TO THE BED. IV SITE REMAINS PATENT TO RT HAND, NO REDNESS, SWELLING OR PAIN NOTED. PT TOLERATING ZOSYN WELL. ALL COMFORT AND SAFETY MEASURES PROVIDED FOR, CALL LIGHT WITHIN REACH, BED IN LOWEST POSITION, WILL CONTINUE TO MONITOR.
[2019-03-12 05:27] VITALS: BP 136/83
[2019-03-12 07:00] LABS: PLATELET COUNT 186 x10^3mcL (130-400)
[2019-03-12 07:03] LABS: CARBON DIOXIDE 31.1 mmol/L (21-32); CHLORIDE SERUM 103 mmol/L (98-107); CREATININE SERUM 1.8 mg/dL (0.6-1.0); GLUCOSE SERUM 191 mg/dL (74-106); MAGNESIUM 2.4 mg/dL (1.8-2.4); PHOSPHOROUS 3.6 mg/dL (2.5-4.9); POTASSIUM SERUM 3.6 mmol/L (3.5-5.1); SODIUM SERUM 141 mmol/L (136-145)
--- NOTE | 2019-03-12 07:20 | NUR ---
PT IS AAOX4. RESP EVEN, SHALLOW, AND UNLABORED. LUNG SOUNDS DIMINISHED BILATERAL BASES. ON R/A. TELE [address] READING AFIB. PT DENIES C/P, PRESSURE AND PALPITATIONS. IVF RUNNING TO R HAND. SITE WNL. NO S/S OF INFECTION OR INFILTRATION. FLUID RESTRICTIONS OF 1.5 L WILL BE MAINTAINED. PT DENIES PAIN AT THIS TIME. CALL LIGHT WITHIN REACH. BED ALARM ON. FALL PROTOCOL IN PLACE. BED IN LOWEST POSTION.
[2019-03-12 08:02] LABS: RED CELL DISTRIBUTION WIDTH 16.3 % (11.5-14.5)
[2019-03-12 09:03] VITALS: BP 96/67
[2019-03-12 09:08] LABS: BAND NEUTROPHIL 0 % (0-10); BASOPHIL 0 % (0-2); MONOCYTE 4 % (0-7); SEGMENTED NEUTROPHILS 89 % (37-75)
[2019-03-12 09:09] LABS: PLATELET MORPHOLOGY PLATELETS DECREASED; rbc morphology (normal/abnorm) ABNORMAL (NORMAL)
--- NOTE | 2019-03-12 09:37 | NUR ---
PT IS RECEIVING VENOUS U/S AT THIS TIME.
--- NOTE | 2019-03-12 09:55 | NUR ---
SCHEDULED MEDS GIVEN AND TOLERATED WELL. COREG AND LASIX HELD DUE TO SBP 96. RESP EVEN AND UNLABORED. NO SOB. PT ON R/A AT THIS TIME. DENIES PAIN. CALL LIGHT WITHIN REACH.
--- NOTE | 2019-03-12 10:06 | NUR ---
SCHEDULED MEDS GIVEN AND TOLERATED WELL. COREG, CARDIZEM, LASIX HELD DUE TO SBP 96. RESP EVEN AND UNLABORED. NO SOB. PT ON R/A AT THIS TIME. DENIES PAIN. WILL INFORM DR. AU. CALL LIGHT WITHIN REACH.
--- NOTE | 2019-03-12 12:17 | NUR ---
PT ASSISTED TO BEDSIDE CHAIR. N/C TAKEN OFF TO MONITOR HOW PT TOLERATES ROOM AIR. BLOOD SUGAR 292, 9 UNITS REG INSULIN GIVEN. PT ENCOURAGED TO USE INCENTIVE SPIROMETER. I/S TEACHING REVIEW GIVEN. 1500ML VOLUME ACCEIVED BY I/S. PT DENIES PAIN. CALL LIGHT WITHIN REACH. WILL CONTINUE TO MONITOR.
[2019-03-12 13:00] VITALS: BP 143/81
--- NOTE | 2019-03-12 13:44 | NUR ---
SPOKE WITH [facility] IN CASE MANAGEMENT. PORTABLE O2 DELIVERED AND FWW DELIVERED TO BEDSIDE. PT IS STILL WAITING FOR CONCENTRATOR TO BE DELIVERED TO HOME. PT MADE AWARE.
--- NOTE | 2019-03-12 14:18 | NUR ---
SCHEDULED MED GIVEN AND TOLERATED WELL. RESP EVEN AND UNLABORED. PT DENIES SOB. ON R/A. FAMILY AT BEDSIDE. DENIES PAIN. CALL LIGHT WITHIN REACH.
--- NOTE | 2019-03-12 14:37 | NUR ---
DR. TRUONG MADE AWARE PT'S MORNING SCHEDULED B/P MEDS AND LASIX WERE HELD DUE TO LOW SBP OF 96. NO NEW ORDERS AT THIS TIME.
--- NOTE | 2019-03-12 14:40 | NUR ---
PT WAS SEEN AND ASSESSED BY DR. TRUONG. NO NEW ORDERS AT THIS TIME.
--- NOTE | 2019-03-12 15:54 | NUR ---
REPORTED TO DR. TRUONG THAT PT'S HR 110-140S. PT DENIES C/P AND PRESSURE. PT'S ECG READING AFIB WITH RVR. DR. TRUONG STATED TO GIVE HELD MORNING DOSE OF DILTIAZEM NOW. ORDER NOTED AND CARRIED. DILTIAZEM GIVEN TO PT AT THIS TIME. PT DENIES PAIN. CALL LIGHT WITHIN REACH. WILL CONTINUE TO MONITOR. CALL LIGHT WITHIN REACH.
--- NOTE | 2019-03-12 16:41 | NUR ---
BLOOD SUGAR 261, 9 UNITS REG INSULIN GIVEN. SCHEDULED MED GIVNE AND TOLERATED WELL. PT DENIES PAIN. N/C AT 1LPM INTACT. CALL LIGHT WITHIN REACH.
[2019-03-12 16:43] VITALS: BP 131/76
--- NOTE | 2019-03-12 16:56 | NUR ---
RESPIRATORY-PT EXPLAINED ON HOME NEBULIZER AND O2 TANK EQUIPMENT. PT HAD NO QUESTIONS AND IS RESTING COMFORTABLY.
--- NOTE | 2019-03-12 17:21 | NUR ---
PT HR 110-120 AT THIS TIME. NO C/O C/P, PRESSURE OR PALPITATIONS. WILL CONTINUE TO MONITOR. CALL LIGHT WITHIN REACH.
--- NOTE | 2019-03-12 18:32 | NUR ---
PT IS AAOX4. RESP EVEN AND UNLABORED. TELE [address] READING SINUS HR 110-120S. DR TRUONG AWARE. IV CATH TO R HAND N/S LOCKED. SITE WNL. 02 N/C IN PLACE AT 1LPM. PT DENIES PAIN AT THIS TIME. CALL LIGHT WITHIN REACH.
--- NOTE | 2019-03-12 19:21 | NUR ---
PT RECEIVED A/O X4, ABLE TO MAKE NEEDS KNOWN, SITTING UP IN BED AND WATCHING TV, SON AT BEDSIDE. TELE #7, AFIB, HR-120s, PT DENIES ANY CP/PRESSURE. PULSES PALPABLE, NO EDEMA PRESENT. BREATHING IS EVEN AND UNLABORED ON 1L NC, DENIES ANY SOB, COUGH NOTED, NO RESP DISTRESS OBSERVED. ABD SOFT AND ROUND, DENIES N/V. PT HAS EPISODES OF URINARY INCONTINENCE. STRICT I&O's: 1.5L RESTRICTION. GENERALIZED WEAKNESS, FWW AT BEDSIDE. SKIN IS WARM AND DRY, INTACT. PT DENIES ANY PAIN AT THIS TIME. SL TO RH, PATENT AND INTACT, SITE WNL. NO ACUTE DISTRESS NOTED. BED IN LOWEST SETTING, SIDE RAILS UP X2, CALL LIGHT WITHIN REACH. WILL CONT TO MONITOR.
[2019-03-12 20:47] VITALS: BP 117/79
--- NOTE | 2019-03-13 00:54 | NUR ---
PT RESTING IN BED WITH EYES CLOSED, BUT IS EASILY AROUSABLE. BREATHING IS EVEN AND UNLABORED, NO RESP DISTRESS NOTED. PT ASSISTED TO BATHROOM AND BACK TO BED WITHOUT INCIDENT. PT DENIES HAVING ANY PAIN AT THIS TIME. NO ACUTE DISTRESS NOTED. CALL LIGHT WITHIN REACH. WILL CONT TO MONITOR.
[2019-03-13 06:37] VITALS: BP 143/60
[2019-03-13 06:41] LABS: PLATELET COUNT 195 x10^3mcL (130-400)
[2019-03-13 06:51] LABS: CALCIUM 8.2 mg/dL (8.5-10.1); CARBON DIOXIDE 28.1 mmol/L (21-32); CHLORIDE SERUM 102 mmol/L (98-107); CREATININE SERUM 1.6 mg/dL (0.6-1.0); GLUCOSE SERUM 238 mg/dL (74-106); MAGNESIUM 2.5 mg/dL (1.8-2.4); PHOSPHOROUS 3.6 mg/dL (2.5-4.9); POTASSIUM SERUM 3.7 mmol/L (3.5-5.1); SODIUM SERUM 139 mmol/L (136-145)
--- NOTE | 2019-03-13 07:15 | NUR ---
RECEIVED PT FROM NIGHT NURSE. PT IS IN BATHROOM AT THIS TIME. PT LOOKS TO BE IN NO ACUTE DISTRESS AT THIS TIME AND DENIES ANY PAIN. IV SITE PATENT WITH NO SIGNS OF ERYTHEMA OR SWELLING. PORTABLE O2 AND FWW AT BEDSIDE. RESPIRATIONS EVEN AND UNLABORED ON 2L NC. TELE MONITOR PRESENT. CALL LIGHT WITHIN REACH. WILL CONITNUE TO MONITOR.
--- NOTE | 2019-03-13 07:37 | NUR ---
PT IN NO ACUTE DISTRESS. CONTINUITY OF CARE ENDORSED TO AM NURSE. ALL QUESTIONS AND CONCERNS ADDRESSED.
[2019-03-13 08:59] LABS: RED CELL DISTRIBUTION WIDTH 16.9 % (11.5-14.5)
[2019-03-13 09:42] VITALS: BP 141/67
[2019-03-13 10:01] LABS: BAND NEUTROPHIL 0 % (0-10); MONOCYTE 16 % (0-7); SEGMENTED NEUTROPHILS 74 % (37-75)
[2019-03-13 10:09] LABS: rbc morphology (normal/abnorm) NORMAL (NORMAL)
[2019-03-13] MEDS ORDERED: AUG500 PO (10:14)
[2019-03-13] MEDS ORDERED: ALBUTEROL1.25 MG/3 NEB (10:20)
[2019-03-13] MEDS ORDERED: SYMBICORT1 AE2 INH (10:22)
[2019-03-13] MEDS ORDERED: PREDNISONE20 MG PO (10:43)
--- NOTE | 2019-03-13 11:36 | NUR ---
1. Recommend continuing [facility] diet. 2. DM diet education provided.
--- NOTE | 2019-03-13 11:36 | NUR ---
Initial Nutrition Assessment: 222T/A YEMI BORREGO MR Dx: Acute hypoxia, respiratory failure PMHx: CHF, DM, HTN, Asthma and A fib PSHx: Right upper back lipoma removal Labs: BG 238H, BUN 47H, CREAT 1.6H, ALB 2.6L, CA 8.2L. MG 2.5H, WBC 11.6H, A1C 8.5H Meds: Cardizem, Colace, D50%, Ferrous sulfate, Humulin, lactinex, lantus, Lipitor, Pulmicort, Zofran, zosyn Diet: CCHO PO intake since admission: (03/12) breakfast 100%, (03/11) dinner, breakfast 80%, lunch 100% Ht: 152.4 cm (60") Wt: 74.4 kg (164#) BMI: 32.1 kg/m2 Bed scale: 164.1# IBW: 100# (45 kg) %IBW: 164 UBW: 164# Age: 74/F Food Allergies: NKFA Skin: intact Rajat: 19 Edema: none GI: Last BM: 03/11 Pt is a 74 yo female with PMH of CHF, DM, HTN, Asthma and A fib who brought to ED due to SOB. RD Note (03/13): Patient was alert and oriented with family member at bedside. Patient said she ate almost all of her breakfast this morning. Per progress note (03/12) Pt is still on 1 L of O2. Pt needs oxygen at home and home health. Lasix IV switched to PO 40 mg PO daily Problem with: N/V/D/C: none Problems with: Chewing: Swallowing: none Current appetite: fair Recent wt change: none %wt change: n/a Vitamin/Supplement use: none Special diet at home: Regular Physical activity: walking with walker Nutrition education given: DM diet education was provided using [facility] handout on 'Type 2 Diabetes Nutrition Therapy'. Concepts like high fiber foods and portion control were discussed. Patient verbalized understanding and did not have any questions at this time. Food-drug interactions: Colace: high fiber w/ 0716-4046 ml fluid/day Education given: n/a Estimated Nutritional Needs Based on adjusted body weight (52 kg) Energy: 6280-2537 kcal/day (25-30 kcal/kg for geriatric maintenance) Protein: 52- 62 g/day (1.0-1.2 g/kg to preserve LBM) Fluid: 3448-2827 mL/day (1 mL/kcal) Nutrition Diagnosis: 1. Food and nutrition related knowledge deficit related to lack of prior nutrition education as evidenced by A1C: 8.5 Intervention 1. Recommend continuing CCHO diet. 2. DM diet education provided. Monitor/Evaluate Goal: PO intake at least 75% of estimated needs Monitor: PO intake, Labs, GI function F/U in 7 days as low risk 03/20
[2019-03-13] MEDS ORDERED: MUCINEX600 MG PO (12:11)
[2019-03-13 12:35] VITALS: BP 152/81
[2019-03-13 13:41] VITALS: BP 152/81
--- NOTE | 2019-03-13 14:40 | NUR ---
PT AWAKE, ALERT AND ORIENTED AT TIME OF DISCHARGE. PT LOOKS TO BE IN NO ACUTE DISTRESS AND DENIES ANY PAIN AT TIME OF DISCHARGE. PT DISCHARGED HOME AND WENT TO LOBBY VIA WHEELCHAIR ACCOMPANIED BY NURSE AND FAMILY MEMBER WITH BELONGINGS IN HAND WELL PORTABLE O2 TANK, NEBULIZER AND FRONT WHEEL WALKER. PROVIDED PT WITH EDUCATION AND PRESCRPITIONS, PT VERBALIZED UNDERSTANDING. INFORMED PT TO MAKE A FOLLOW UP APPOINTMENT WITHIN 1 WEEK OF DISHCARGE WITH PCP, PT AND FAMILY MEMBER VERBALIZED UNDERSTANDING. INFORMED PT THAT HOME HEALTH IS SET UP AND WILL BE CONTACTING PT WITH APPOITNMENT DETAILS, PROIVDED PT WITH NUMBER IN CASE OF NEED FOR CALLING HOME HEALTH, PT AND FAMILY MEMBER VERBALIZED UNDERSTANDING. TELE MONITOR REMOVED AND RETURNED TO TELE STATION. IV CATHETER REMOVED AND FULLY INTACT. ALL QUESTIONS AND CONCERNS ADDRESSED.
== END 2019-03-13 14:45 | disposition home health service (06) | DRG 177 ==
LOC: ED 15:01 → DU 18:21
PROVIDERS: Internal Medicine Nephrology; Specialist; ADMIT Family Medicine
DX: J69.0 Pneumonitis due to inhalation of food and vomit (principal); J96.01 Acute respiratory failure with hypoxia; I50.33 Acute on chronic diastolic (congestive) heart failure; I48.20 Chronic atrial fibrillation, unspecified; J44.1 Chronic obstructive pulmonary disease with (acute) exacerbation; J45.901 Unspecified asthma with (acute) exacerbation; N17.9 Acute kidney failure, unspecified; I13.0 Hypertensive heart and chronic kidney disease with heart failure and stage 1 through stage 4 chronic kidney disease, or unspecified chronic kidney disease; N18.3 Chronic kidney disease, stage 3 (moderate); E11.22 Type 2 diabetes mellitus with diabetic chronic kidney disease; E11.65 Type 2 diabetes mellitus with hyperglycemia; D53.9 Nutritional anemia, unspecified; Z68.33 Body mass index [BMI] 33.0-33.9, adult; Z79.84 Long term (current) use of oral hypoglycemic drugs; E78.5 Hyperlipidemia, unspecified
CPT/HCPCS: 36600; 82962; 83880; 84439; 87804; 90658; 94150; 97116-GP; G0378; J1815; J1940; J1956; J2405; J2543; J2920; J2930; J7050; J7512; J7613; J7620; J7626; Q0092

== ENCOUNTER 2019-04-13 08:17 | Emergency (ER) | payer OTHER, MEDICAID ==
[~2019-04-13] VITALS: Ht 157.5 cm; Wt 67.6 kg
[~2019-04-13 08:17] MED LIST: ALBUTEROL1.25 MG/3 NEB; AUG500 PO; CARVEDILOL25 M1 PO; DILTIAZEM HCL120 M2 PO; ELIQUIS5 MG PO; FERROUS SULFAT325 M2 PO; FUROSEMIDE40 MG PO; GLIPIZIDE5 M2 PO; JANUVIA100 M1 PO; LIPI10 PO; LOSARTAN POTASS25 M1 PO; METFORMIN HYDR500 M1 PO; MUCINEX600 MG PO; PANTOPRAZOLE SO40 M1 PO; POTASSIUM CHLO10 MEQ PO; PREDNISONE20 MG PO; SYMBICORT1 AE2 INH
[2019-04-13 08:18] VITALS: Ht 157.5 cm; Wt 67.6 kg
[2019-04-13 09:30] VITALS: BP 114/67
== END 2019-04-13 09:30 | disposition home or self-care (01) ==
LOC: ED 08:17
DX: M10.072 Idiopathic gout, left ankle and foot (principal); I11.0 Hypertensive heart disease with heart failure; I50.9 Heart failure, unspecified; E11.9 Type 2 diabetes mellitus without complications; J45.909 Unspecified asthma, uncomplicated